=== PATIENT | female | born 1940 | race Caucasian/White ===

== ENCOUNTER → 2023-11-28 16:10 | Outpatient (REF) | payer OTHER, SELFPAY ==
[2023-11-28 12:14] LABS: % Basophils 0.7 % (0-2); % Eosinophils 0.4 % (0-6); % Immature Granulocytes 0.2 % (0-0.5); % Monocytes 7.2 % (1.7-9.3); % Neutrophils 62.5 % (42.2-75.2); Absolute Basophils 0.1 10^3/uL (0-0.2); Absolute Lymphocytes 2.6 10^3/uL (1.2-3.4); Absolute Monocytes 0.6 10^3/uL (0.1-0.6); Absolute Neutrophils 5.6 10^3/uL (1.4-6.5); Hematocrit 35.5 % (37.0-47.0); Hemoglobin 12.4 g/dL (12.0-16.0); Mean Corp Hgb Conc. 34.9 g/dL (33.0-37.0); Mean Corpuscular Hgb 33.4 pg (27.0-31.0); Mean Corpuscular Volume 95.7 fL (81.0-99.0); Mean Platelet Volume 11.2 fL (7.4-10.4); Nucleated Red Blood Cells % 0 %; Platelet Count 224 10^3/uL (130-400); Red Blood Cell Count 3.71 10^6/uL (4.20-5.40); Red Cell Dist. Width 12.5 % (11.5-14.5); White Blood Cell Count 8.9 10^3/uL (4.8-10.8)
== END ==
LOC: OIDL 16:10
PROVIDERS: ATTENDING PHYSICIAN Nurse Practitioner Acute Care
DX: E83.110 Hereditary hemochromatosis (principal)
CPT/HCPCS: 85025

== ENCOUNTER → 2023-12-02 07:27 | Outpatient (REF) | payer OTHER, SELFPAY ==
[2023-12-02 10:31] LABS: % Basophils 0.7 % (0-2); % Eosinophils 0.7 % (0-6); % Immature Granulocytes 0.2 % (0-0.5); % Lymphocytes 27.1 % (20.5-51.1); % Monocytes 6.8 % (1.7-9.3); % Neutrophils 64.5 % (42.2-75.2); Absolute Basophils 0.1 10^3/uL (0-0.2); Absolute Eosinophils 0.1 10^3/uL (0-0.7); Absolute Lymphocytes 2.5 10^3/uL (1.2-3.4); Absolute Monocytes 0.6 10^3/uL (0.1-0.6); Absolute Neutrophils 5.9 10^3/uL (1.4-6.5); Hematocrit 34.8 % (37.0-47.0); Mean Corp Hgb Conc. 34.5 g/dL (33.0-37.0); Mean Corpuscular Hgb 33.7 pg (27.0-31.0); Mean Corpuscular Volume 97.8 fL (81.0-99.0); Mean Platelet Volume 11.3 fL (7.4-10.4); Nucleated Red Blood Cells % 0 %; Platelet Count 243 10^3/uL (130-400); Red Blood Cell Count 3.56 10^6/uL (4.20-5.40); Red Cell Dist. Width 12.7 % (11.5-14.5); White Blood Cell Count 9.1 10^3/uL (4.8-10.8)
== END ==
LOC: REG 07:27
PROVIDERS: ATTENDING PHYSICIAN Internal Medicine Hematology & Oncology; FAMILY PHYSICIAN Nurse Practitioner Adult Health
DX: E83.110 Hereditary hemochromatosis (principal)
CPT/HCPCS: 36415; 85025

== ENCOUNTER → 2023-12-09 07:13 | Outpatient (REF) | payer OTHER, SELFPAY ==
[2023-12-09 08:48] LABS: % Basophils 0.6 % (0-2); % Eosinophils 0.7 % (0-6); % Immature Granulocytes 0.4 % (0-0.5); % Lymphocytes 29.6 % (20.5-51.1); % Monocytes 7.3 % (1.7-9.3); % Neutrophils 61.4 % (42.2-75.2); Absolute Basophils 0.1 10^3/uL (0-0.2); Absolute Eosinophils 0.1 10^3/uL (0-0.7); Absolute Lymphocytes 2.4 10^3/uL (1.2-3.4); Absolute Monocytes 0.6 10^3/uL (0.1-0.6); Hematocrit 32.7 % (37.0-47.0); Hemoglobin 11.5 g/dL (12.0-16.0); Mean Corp Hgb Conc. 35.2 g/dL (33.0-37.0); Mean Corpuscular Hgb 33.8 pg (27.0-31.0); Mean Corpuscular Volume 96.2 fL (81.0-99.0); Nucleated Red Blood Cells % 0 %; Platelet Count 258 10^3/uL (130-400); Red Cell Dist. Width 12.9 % (11.5-14.5); White Blood Cell Count 8.1 10^3/uL (4.8-10.8)
[2023-12-09 08:51] LABS: Iron 240 ug/dl (37-170)
[2023-12-09 09:00] LABS: Percent Saturation 105 % (20-50); Total Iron Binding Capacity 228 ug/dl (265-497)
== END ==
LOC: REG 07:13
PROVIDERS: ATTENDING PHYSICIAN Nurse Practitioner Acute Care; FAMILY PHYSICIAN Nurse Practitioner Adult Health
DX: E83.110 Hereditary hemochromatosis (principal)
CPT/HCPCS: 36415; 82728; 83540; 83550; 85025

== ENCOUNTER → 2023-12-22 16:10 | Outpatient (REF) | payer OTHER, SELFPAY ==
[2023-12-22 08:48] LABS: % Basophils 0.3 % (0-2); % Eosinophils 0.7 % (0-6); % Immature Granulocytes 0.1 % (0-0.5); % Lymphocytes 34.8 % (20.5-51.1); % Neutrophils 57.1 % (42.2-75.2); Absolute Eosinophils 0.1 10^3/uL (0-0.7); Absolute Lymphocytes 2.7 10^3/uL (1.2-3.4); Absolute Monocytes 0.5 10^3/uL (0.1-0.6); Absolute Neutrophils 4.4 10^3/uL (1.4-6.5); Hemoglobin 11.6 g/dL (12.0-16.0); Mean Corp Hgb Conc. 34.1 g/dL (33.0-37.0); Mean Corpuscular Hgb 33.7 pg (27.0-31.0); Mean Corpuscular Volume 98.8 fL (81.0-99.0); Mean Platelet Volume 9.7 fL (7.4-10.4); Platelet Count 230 10^3/uL (130-400); Red Blood Cell Count 3.44 10^6/uL (4.20-5.40); Red Cell Dist. Width 13.1 % (11.5-14.5); White Blood Cell Count 7.6 10^3/uL (4.8-10.8)
== END ==
LOC: OIDL 16:10
PROVIDERS: ATTENDING PHYSICIAN Nurse Practitioner Acute Care
DX: E83.110 Hereditary hemochromatosis (principal)
CPT/HCPCS: 85025

== ENCOUNTER → 2023-12-27 06:54 | Outpatient (REF) | payer OTHER, SELFPAY | LOC: RAD 06:54 | PROVIDERS: ATTENDING PHYSICIAN Nurse Practitioner Acute Care; FAMILY PHYSICIAN Nurse Practitioner Adult Health | DX: E83.110 Hereditary hemochromatosis (principal) | CPT/HCPCS: 76700 ==

== ENCOUNTER → 2023-12-28 06:52 | Outpatient (REF) | payer OTHER, SELFPAY ==
[2023-12-28 07:10] LABS: % Basophils 0.7 % (0-2); % Eosinophils 1.3 % (0-6); % Immature Granulocytes 0.3 % (0-0.5); % Lymphocytes 37.6 % (20.5-51.1); % Monocytes 9.5 % (1.7-9.3); % Neutrophils 50.6 % (42.2-75.2); Absolute Basophils 0.1 10^3/uL (0-0.2); Absolute Eosinophils 0.1 10^3/uL (0-0.7); Absolute Lymphocytes 2.6 10^3/uL (1.2-3.4); Absolute Monocytes 0.7 10^3/uL (0.1-0.6); Absolute Neutrophils 3.4 10^3/uL (1.4-6.5); Hematocrit 32.5 % (37.0-47.0); Hemoglobin 11.4 g/dL (12.0-16.0); Mean Corp Hgb Conc. 35.1 g/dL (33.0-37.0); Mean Corpuscular Hgb 34.1 pg (27.0-31.0); Mean Corpuscular Volume 97.3 fL (81.0-99.0); Nucleated Red Blood Cells % 0 %; Platelet Count 233 10^3/uL (130-400); Red Blood Cell Count 3.34 10^6/uL (4.20-5.40); Red Cell Dist. Width 13.2 % (11.5-14.5); White Blood Cell Count 6.8 10^3/uL (4.8-10.8)
== END ==
LOC: REG 06:52
PROVIDERS: ATTENDING PHYSICIAN Internal Medicine Hematology & Oncology; FAMILY PHYSICIAN Nurse Practitioner Adult Health
DX: E83.110 Hereditary hemochromatosis (principal)
CPT/HCPCS: 36415; 85025

== ENCOUNTER → 2023-12-29 11:19 | Outpatient (REF) | payer OTHER, SELFPAY ==
[2023-12-29 11:40] LABS: Iron 206 ug/dl (37-170)
[2023-12-29 11:49] LABS: Percent Saturation 85 % (20-50); Total Iron Binding Capacity 240 ug/dl (265-497)
== END ==
LOC: OIDL 11:19
PROVIDERS: ATTENDING PHYSICIAN Nurse Practitioner Acute Care
DX: E83.110 Hereditary hemochromatosis (principal)
CPT/HCPCS: 82728; 83540; 83550

== ENCOUNTER → 2024-01-04 06:45 | Outpatient (REF) | payer OTHER, SELFPAY ==
[2024-01-04 10:11] LABS: % Basophils 1.3 % (0-2); % Eosinophils 1.4 % (0-6); % Immature Granulocytes 0.5 % (0-0.5); % Monocytes 8.3 % (1.7-9.3); % Neutrophils 52.5 % (42.2-75.2); Absolute Basophils 0.1 10^3/uL (0-0.2); Absolute Eosinophils 0.1 10^3/uL (0-0.7); Absolute Lymphocytes 2.3 10^3/uL (1.2-3.4); Absolute Monocytes 0.5 10^3/uL (0.1-0.6); Absolute Neutrophils 3.3 10^3/uL (1.4-6.5); Hematocrit 33.5 % (37.0-47.0); Hemoglobin 11.3 g/dL (12.0-16.0); Mean Corp Hgb Conc. 33.7 g/dL (33.0-37.0); Mean Corpuscular Hgb 33.6 pg (27.0-31.0); Mean Corpuscular Volume 99.7 fL (81.0-99.0); Mean Platelet Volume 10.7 fL (7.4-10.4); Nucleated Red Blood Cells % 0 %; Platelet Count 239 10^3/uL (130-400); Red Blood Cell Count 3.36 10^6/uL (4.20-5.40); Red Cell Dist. Width 13.9 % (11.5-14.5); White Blood Cell Count 6.4 10^3/uL (4.8-10.8)
== END ==
LOC: REG 06:45
PROVIDERS: ATTENDING PHYSICIAN Internal Medicine Hematology & Oncology; FAMILY PHYSICIAN Nurse Practitioner Adult Health
DX: E83.110 Hereditary hemochromatosis (principal)
CPT/HCPCS: 36415; 85025

== ENCOUNTER → 2024-01-11 06:48 | Outpatient (REF) | payer OTHER, SELFPAY ==
[2024-01-11 08:39] LABS: % Basophils 0.7 % (0-2); % Eosinophils 1.2 % (0-6); % Immature Granulocytes 0.4 % (0-0.5); % Lymphocytes 35.4 % (20.5-51.1); % Monocytes 8.1 % (1.7-9.3); % Neutrophils 54.2 % (42.2-75.2); Absolute Basophils 0.1 10^3/uL (0-0.2); Absolute Eosinophils 0.1 10^3/uL (0-0.7); Absolute Lymphocytes 2.5 10^3/uL (1.2-3.4); Absolute Monocytes 0.6 10^3/uL (0.1-0.6); Absolute Neutrophils 3.8 10^3/uL (1.4-6.5); Hematocrit 33.5 % (37.0-47.0); Hemoglobin 11.1 g/dL (12.0-16.0); Mean Corp Hgb Conc. 33.1 g/dL (33.0-37.0); Mean Corpuscular Hgb 33.3 pg (27.0-31.0); Mean Corpuscular Volume 100.6 fL (81.0-99.0); Mean Platelet Volume 10.4 fL (7.4-10.4); Nucleated Red Blood Cells % 0 %; Platelet Count 253 10^3/uL (130-400); Red Blood Cell Count 3.33 10^6/uL (4.20-5.40); Red Cell Dist. Width 13.4 % (11.5-14.5); White Blood Cell Count 6.9 10^3/uL (4.8-10.8)
[2024-01-11 09:44] LABS: Iron 289 ug/dl (37-170)
[2024-01-11 09:54] LABS: Percent Saturation 108 % (20-50); Total Iron Binding Capacity 267 ug/dl (265-497)
== END ==
LOC: REG 06:48
PROVIDERS: ATTENDING PHYSICIAN Internal Medicine Hematology & Oncology; FAMILY PHYSICIAN Nurse Practitioner Adult Health
DX: E83.110 Hereditary hemochromatosis (principal)
CPT/HCPCS: 36415; 82728; 83540; 83550; 85025

== ENCOUNTER → 2024-01-20 11:03 | Outpatient (REF) | payer OTHER, SELFPAY | LOC: HWRCS 11:03 | PROVIDERS: ATTENDING PHYSICIAN Internal Medicine; FAMILY PHYSICIAN Nurse Practitioner Adult Health | DX: R10.13 Epigastric pain (principal) | CPT/HCPCS: 93306 ==

== ENCOUNTER → 2024-01-25 07:17 | Outpatient (REF) | payer OTHER, SELFPAY ==
[2024-01-25 09:14] LABS: Iron 243 ug/dl (37-170)
[2024-01-25 09:15] LABS: % Basophils 0.6 % (0-2); % Eosinophils 1.3 % (0-6); % Immature Granulocytes 0.4 % (0-0.5); % Lymphocytes 26.5 % (20.5-51.1); % Monocytes 7.1 % (1.7-9.3); % Neutrophils 64.1 % (42.2-75.2); Absolute Basophils 0.1 10^3/uL (0-0.2); Absolute Eosinophils 0.1 10^3/uL (0-0.7); Absolute Lymphocytes 2.1 10^3/uL (1.2-3.4); Absolute Monocytes 0.6 10^3/uL (0.1-0.6); Absolute Neutrophils 5.1 10^3/uL (1.4-6.5); Hematocrit 30.7 % (37.0-47.0); Hemoglobin 10.3 g/dL (12.0-16.0); Mean Corp Hgb Conc. 33.6 g/dL (33.0-37.0); Mean Corpuscular Hgb 33.9 pg (27.0-31.0); Mean Platelet Volume 10.5 fL (7.4-10.4); Nucleated Red Blood Cells % 0 %; Platelet Count 264 10^3/uL (130-400); Red Blood Cell Count 3.04 10^6/uL (4.20-5.40); Red Cell Dist. Width 13.6 % (11.5-14.5); White Blood Cell Count 7.9 10^3/uL (4.8-10.8)
[2024-01-25 09:24] LABS: Percent Saturation 92 % (20-50); Total Iron Binding Capacity 264 ug/dl (265-497)
== END ==
LOC: REG 07:17
PROVIDERS: ATTENDING PHYSICIAN Internal Medicine Hematology & Oncology; FAMILY PHYSICIAN Nurse Practitioner Adult Health
DX: E83.110 Hereditary hemochromatosis (principal)
CPT/HCPCS: 36415; 82728; 83540; 83550; 85025

== ENCOUNTER → 2024-01-27 07:22 | Outpatient (REF) | payer OTHER, SELFPAY | LOC: DHCBC/DCA 07:22 | PROVIDERS: ATTENDING PHYSICIAN Internal Medicine; FAMILY PHYSICIAN Nurse Practitioner Adult Health | DX: R10.13 Epigastric pain (principal) | CPT/HCPCS: 78452; 93017; A9500; J2785 ==

== ENCOUNTER → 2024-02-01 07:38 | Outpatient (REF) | payer OTHER, SELFPAY ==
[2024-02-01 08:06] LABS: % Basophils 0.8 % (0-2); % Eosinophils 1.1 % (0-6); % Immature Granulocytes 0.6 % (0-0.5); % Lymphocytes 27.1 % (20.5-51.1); % Monocytes 6.7 % (1.7-9.3); % Neutrophils 63.7 % (42.2-75.2); Absolute Basophils 0.1 10^3/uL (0-0.2); Absolute Eosinophils 0.1 10^3/uL (0-0.7); Absolute Lymphocytes 1.8 10^3/uL (1.2-3.4); Absolute Monocytes 0.4 10^3/uL (0.1-0.6); Absolute Neutrophils 4.2 10^3/uL (1.4-6.5); Hematocrit 29.5 % (37.0-47.0); Hemoglobin 10.6 g/dL (12.0-16.0); Mean Corp Hgb Conc. 35.9 g/dL (33.0-37.0); Mean Corpuscular Hgb 36.2 pg (27.0-31.0); Mean Corpuscular Volume 100.7 fL (81.0-99.0); Mean Platelet Volume 9.8 fL (7.4-10.4); Nucleated Red Blood Cells % 0 %; Platelet Count 253 10^3/uL (130-400); Red Blood Cell Count 2.93 10^6/uL (4.20-5.40); Red Cell Dist. Width 13.3 % (11.5-14.5); White Blood Cell Count 6.6 10^3/uL (4.8-10.8)
[2024-02-01 08:40] LABS: Iron 214 ug/dl (37-170)
[2024-02-01 08:49] LABS: Percent Saturation 80 % (20-50); Total Iron Binding Capacity 266 ug/dl (265-497)
== END ==
LOC: REG 07:38
PROVIDERS: ATTENDING PHYSICIAN Internal Medicine Hematology & Oncology; FAMILY PHYSICIAN Nurse Practitioner Adult Health
DX: E83.110 Hereditary hemochromatosis (principal)
CPT/HCPCS: 36415; 82728; 83540; 83550; 85025

== ENCOUNTER → 2024-02-08 07:09 | Outpatient (REF) | payer OTHER, SELFPAY ==
[2024-02-08 08:53] LABS: % Basophils 1.1 % (0-2); % Eosinophils 1.2 % (0-6); % Immature Granulocytes 0.4 % (0-0.5); % Lymphocytes 33.7 % (20.5-51.1); % Monocytes 6.6 % (1.7-9.3); Absolute Basophils 0.1 10^3/uL (0-0.2); Absolute Eosinophils 0.1 10^3/uL (0-0.7); Absolute Lymphocytes 2.5 10^3/uL (1.2-3.4); Absolute Monocytes 0.5 10^3/uL (0.1-0.6); Absolute Neutrophils 4.1 10^3/uL (1.4-6.5); Hemoglobin 11.3 g/dL (12.0-16.0); Iron 272 ug/dl (37-170); Mean Corp Hgb Conc. 34.2 g/dL (33.0-37.0); Mean Corpuscular Hgb 33.7 pg (27.0-31.0); Mean Corpuscular Volume 98.5 fL (81.0-99.0); Mean Platelet Volume 10.5 fL (7.4-10.4); Nucleated Red Blood Cells % 0 %; Platelet Count 263 10^3/uL (130-400); Red Blood Cell Count 3.35 10^6/uL (4.20-5.40); Red Cell Dist. Width 13.4 % (11.5-14.5); White Blood Cell Count 7.3 10^3/uL (4.8-10.8)
[2024-02-08 09:04] LABS: Percent Saturation 105 % (20-50); Total Iron Binding Capacity 258 ug/dl (265-497)
== END ==
LOC: REG 07:09
PROVIDERS: ATTENDING PHYSICIAN Internal Medicine Hematology & Oncology; FAMILY PHYSICIAN Nurse Practitioner Adult Health
DX: E83.110 Hereditary hemochromatosis (principal)
CPT/HCPCS: 36415; 82728; 83540; 83550; 85025

== ENCOUNTER → 2024-02-23 07:37 | Outpatient (REF) | payer OTHER, SELFPAY ==
[2024-02-23 09:04] LABS: Iron 194 ug/dl (37-170)
[2024-02-23 09:13] LABS: Percent Saturation 74 % (20-50); Total Iron Binding Capacity 261 ug/dl (265-497)
[2024-02-23 09:56] LABS: % Basophils 0.6 % (0-2); % Eosinophils 0.9 % (0-6); % Immature Granulocytes 0.4 % (0-0.5); % Lymphocytes 22.8 % (20.5-51.1); % Monocytes 7.5 % (1.7-9.3); % Neutrophils 67.8 % (42.2-75.2); Absolute Basophils 0.1 10^3/uL (0-0.2); Absolute Eosinophils 0.1 10^3/uL (0-0.7); Absolute Lymphocytes 2.2 10^3/uL (1.2-3.4); Absolute Monocytes 0.7 10^3/uL (0.1-0.6); Absolute Neutrophils 6.6 10^3/uL (1.4-6.5); Hematocrit 31.9 % (37.0-47.0); Mean Corp Hgb Conc. 34.5 g/dL (33.0-37.0); Mean Corpuscular Hgb 33.7 pg (27.0-31.0); Mean Corpuscular Volume 97.9 fL (81.0-99.0); Mean Platelet Volume 10.6 fL (7.4-10.4); Nucleated Red Blood Cells % 0 %; Platelet Count 239 10^3/uL (130-400); Red Blood Cell Count 3.26 10^6/uL (4.20-5.40); Red Cell Dist. Width 13.2 % (11.5-14.5); White Blood Cell Count 9.7 10^3/uL (4.8-10.8)
== END ==
LOC: REG 07:37
PROVIDERS: ATTENDING PHYSICIAN Internal Medicine Hematology & Oncology; FAMILY PHYSICIAN Nurse Practitioner Adult Health
DX: E83.110 Hereditary hemochromatosis (principal)
CPT/HCPCS: 36415; 82728; 83540; 83550; 85025

== ENCOUNTER → 2024-03-07 10:00 | Outpatient (REF) | payer OTHER, SELFPAY ==
[2024-03-07 11:35] LABS: Iron 232 ug/dl (37-170)
[2024-03-07 11:46] LABS: Percent Saturation 91 % (20-50); Total Iron Binding Capacity 254 ug/dl (265-497)
[2024-03-07 11:55] LABS: % Eosinophils 0.5 % (0-6); % Immature Granulocytes 0.4 % (0-0.5); % Lymphocytes 29.4 % (20.5-51.1); % Monocytes 6.3 % (1.7-9.3); % Neutrophils 62.4 % (42.2-75.2); Absolute Basophils 0.1 10^3/uL (0-0.2); Absolute Lymphocytes 2.5 10^3/uL (1.2-3.4); Absolute Monocytes 0.5 10^3/uL (0.1-0.6); Absolute Neutrophils 5.2 10^3/uL (1.4-6.5); Hematocrit 31.7 % (37.0-47.0); Hemoglobin 10.9 g/dL (12.0-16.0); Mean Corp Hgb Conc. 34.4 g/dL (33.0-37.0); Mean Corpuscular Hgb 33.2 pg (27.0-31.0); Mean Corpuscular Volume 96.6 fL (81.0-99.0); Mean Platelet Volume 10.8 fL (7.4-10.4); Nucleated Red Blood Cells % 0 %; Platelet Count 274 10^3/uL (130-400); Red Blood Cell Count 3.28 10^6/uL (4.20-5.40); Red Cell Dist. Width 13.1 % (11.5-14.5); White Blood Cell Count 8.4 10^3/uL (4.8-10.8)
== END ==
LOC: REG 10:00
PROVIDERS: ATTENDING PHYSICIAN Internal Medicine Hematology & Oncology
DX: E83.110 Hereditary hemochromatosis (principal)
CPT/HCPCS: 36415; 82728; 83540; 83550; 85025

== ENCOUNTER → 2024-03-21 07:11 | Outpatient (REF) | payer OTHER, SELFPAY ==
[2024-03-21 09:03] LABS: Iron 202 ug/dl (37-170)
[2024-03-21 09:11] LABS: % Basophils 0.9 % (0-2); % Immature Granulocytes 0.6 % (0-0.5); % Lymphocytes 27.5 % (20.5-51.1); % Monocytes 6.7 % (1.7-9.3); % Neutrophils 63.3 % (42.2-75.2); Absolute Basophils 0.1 10^3/uL (0-0.2); Absolute Eosinophils 0.1 10^3/uL (0-0.7); Absolute Immature Granulocytes 0.1 10^3/uL (0-0.05); Absolute Lymphocytes 2.5 10^3/uL (1.2-3.4); Absolute Monocytes 0.6 10^3/uL (0.1-0.6); Absolute Neutrophils 5.7 10^3/uL (1.4-6.5); Hematocrit 34.2 % (37.0-47.0); Hemoglobin 11.7 g/dL (12.0-16.0); Mean Corp Hgb Conc. 34.2 g/dL (33.0-37.0); Mean Corpuscular Hgb 33.3 pg (27.0-31.0); Mean Corpuscular Volume 97.4 fL (81.0-99.0); Mean Platelet Volume 10.6 fL (7.4-10.4); Nucleated Red Blood Cells % 0 %; Platelet Count 258 10^3/uL (130-400); Red Blood Cell Count 3.51 10^6/uL (4.20-5.40); Red Cell Dist. Width 13.2 % (11.5-14.5)
[2024-03-21 09:13] LABS: Percent Saturation 74 % (20-50); Total Iron Binding Capacity 272 ug/dl (265-497)
== END ==
LOC: REG 07:11
PROVIDERS: ATTENDING PHYSICIAN Internal Medicine Hematology & Oncology; FAMILY PHYSICIAN Nurse Practitioner Adult Health
DX: E83.110 Hereditary hemochromatosis (principal)
CPT/HCPCS: 36415; 82728; 83540; 83550; 85025

== ENCOUNTER → 2024-04-16 07:01 | Outpatient (REF) | payer OTHER, SELFPAY ==
[2024-04-16 09:06] LABS: ALT (SGPT) 24 U/L (0-35); AST (SGOT) 34 U/L (14-36); Albumin 4.1 g/dl (3.5-5.0); Alkaline Phosphatase 90 U/L (38-126); Direct Bilirubin 0.2 mg/dl (0.0-0.4); Iron 231 ug/dl (37-170); Total Bilirubin 0.7 mg/dl (0.2-1.3); Total Protein 6.6 g/dl (6.3-8.2)
[2024-04-16 09:15] LABS: Percent Saturation 91 % (20-50); Total Iron Binding Capacity 253 ug/dl (265-497)
[2024-04-16 09:23] LABS: % Basophils 0.9 % (0-2); % Eosinophils 1.3 % (0-6); % Immature Granulocytes 0.9 % (0-0.5); % Lymphocytes 35.8 % (20.5-51.1); % Monocytes 8.6 % (1.7-9.3); % Neutrophils 52.5 % (42.2-75.2); Absolute Basophils 0.1 10^3/uL (0-0.2); Absolute Eosinophils 0.1 10^3/uL (0-0.7); Absolute Immature Granulocytes 0.1 10^3/uL (0-0.05); Absolute Lymphocytes 2.4 10^3/uL (1.2-3.4); Absolute Monocytes 0.6 10^3/uL (0.1-0.6); Absolute Neutrophils 3.6 10^3/uL (1.4-6.5); Hematocrit 34.3 % (37.0-47.0); Hemoglobin 12.1 g/dL (12.0-16.0); Mean Corp Hgb Conc. 35.3 g/dL (33.0-37.0); Mean Corpuscular Hgb 33.8 pg (27.0-31.0); Mean Corpuscular Volume 95.8 fL (81.0-99.0); Mean Platelet Volume 11.1 fL (7.4-10.4); Nucleated Red Blood Cells % 0 %; Platelet Count 230 10^3/uL (130-400); Red Blood Cell Count 3.58 10^6/uL (4.20-5.40); White Blood Cell Count 6.8 10^3/uL (4.8-10.8)
== END ==
LOC: REG 07:01
PROVIDERS: ATTENDING PHYSICIAN Internal Medicine Hematology & Oncology; FAMILY PHYSICIAN Physician Assistant Medical
DX: E83.110 Hereditary hemochromatosis (principal); R71.8 Other abnormality of red blood cells; D53.9 Nutritional anemia, unspecified; D51.8 Other vitamin B12 deficiency anemias
CPT/HCPCS: 36415; 80076; 82728; 83540; 83550; 85025

== ENCOUNTER → 2024-04-27 10:03 | Outpatient (REF) | payer OTHER, SELFPAY ==
[2024-04-27 12:07] LABS: Blood Urea Nitrogen 36 mg/dl (7-17)
== END ==
LOC: REG 10:03
PROVIDERS: ATTENDING PHYSICIAN Internal Medicine Hematology & Oncology
DX: E83.110 Hereditary hemochromatosis (principal); R71.8 Other abnormality of red blood cells; D53.9 Nutritional anemia, unspecified; D51.8 Other vitamin B12 deficiency anemias
CPT/HCPCS: 36415; 82105; 82565; 84520

== ENCOUNTER → 2024-04-30 07:52 | Outpatient (REF) | payer OTHER, SELFPAY | LOC: RAD 07:52 | PROVIDERS: ATTENDING PHYSICIAN Internal Medicine Hematology & Oncology; FAMILY PHYSICIAN Nurse Practitioner Adult Health | DX: E83.110 Hereditary hemochromatosis (principal) | CPT/HCPCS: 74170; Q9967 ==

== ENCOUNTER 2024-05-07 11:01 | Emergency (ER) | payer OTHER, SELFPAY ==
[2024-05-07] VITALS (9 sets, daily range): BP systolic 92–136; BP diastolic 66–111; PULSE 85–96
--- NOTE | 2024-05-07 12:51 | ED.GENMED ---
History of Present Illness
General
Chief Complaint: Breathing Problem
Source: patient
Exam Limitations: none
Time Seen by Provider: 05/07/24 12:43
Nursing documentation reviewed up to this point in time: agreed with
History of Present Illness
History of Present Illness:
Patient presents to ED secondary to intermittent dizziness, along with whole body racing feeling', over the past 3 days, which started 2 days after starting a new medication called Deferasirox for elevated iron level. In addition, patient reports
nasal congestion with cough, 2 days prior to starting her new medication, symptoms currently ongoing. Denies chest pain. Denies shortness of breath. Denies nausea, vomiting, or diarrhea. Denies loss of appetite. Patient spoke with her
digital composer who advised patient to stop taking the new medication yesterday. Today, patient states her symptoms are not as severe. Denies headache. Denies blurred vision. Denies loss of sensation or weakness. Denies difficulty with ambulation.
Past History
Past History
ED Past Medical History: HTN (Takes a 'water pill')
Social History
Tobacco: Non-smoker
Personal:
Living: with family
Review of Systems
Review of Systems
Allergies reviewed?: Yes
All Other Systems: ROS reviewed and negative except as documented in HPI and ROS
Constitutional: Reports no symptoms
EENT: Reports no symptoms
Respiratory: Reports cough; Denies trouble breathing
Cardiac: Reports no symptoms; Denies chest pain or palpitations
ABD/GI: Reports no symptoms
Musculoskeletal: Reports no symptoms
Skin: Reports no symptoms
Neurological: Reports dizzy
Phy Exam
Physical Exam
Physical Exam:
Physical Exam
General: no apparent distress, not acutely ill. afebrile
Head: nc/at. eomi
Neck: supple. normal range of motion. normal posterior pharynx
Heart: s1/s2 regular rate and rhythm, no murmur. equal radial pulses.
Lungs: no acute respiratory distress. clear bilaterally
Abdomen: normal bowel sounds. not tender.
Neuro: alert and oriented x 3. no focal neurological deficits
Skin: no rash
Psychiatric: well kept. interactive and cooperative
Extremities: no edema. no calf tenderness.
Scores
Heart Failure Risk
Heart Failure Risk Score: Not Applicable
Course
Orders/Labs/Results
Orders:
Orders
05/07/24 11:11
Electrocardiogram (*1) Urgent
Reason for Study: Shortness of Breath
EKG- Treatment ONCE
05/07/24 12:56
COVID-19 Antigen Urgent
Source: Nasal Swab
Complete Blood Count/With Diff Urgent
Influenza A+B Rapid Molecular Urgent
ALAYNA Source: Nasal Swab
Specimen Description:
05/07/24 12:57
CMP [Comprehensive Metabolic Panel] Urgent
TSH Reflex To Free T4 Urgent
Comment: ADD ON
05/07/24 13:07
Add On- LAB Urgent
Tests Added?: Pro-BNP, TSH to reflex free T4, magnesium
CR Chest - 2 Views Urgent
Comment:
Reason For Exam: congestion/cough/sob
05/07/24 13:18
Orthostatic VS- Treatment ONCE
05/07/24 13:41
0.9% Sodium Chloride 250 ml [Nss] 250 ml IV BOLUS
05/07/24 13:55
Pro-BNP [NT-proBNP] Urgent
05/07/24 14:55
CT Head W/o Iv Contrast Urgent
Comment:
Reason For Exam: dizziness
05/07/24 16:39
Azithromycin [Zithromax] 500 mg PO NOW STA
Abnormal Lab Results
05/07/24 05/07/24
12:56 12:57
RBC 3.85 L 10^6/uL
(4.20-5.40)
Hct 36.2 L %
(37.0-47.0)
MCH 34.0 H pg
(27.0-31.0)
MPV 10.6 H fL
(7.4-10.4)
Abs Immat Gran (auto) 0.1 H 10^3/uL
(0-0.05)
Absolute Neuts (auto) 7.4 H 10^3/uL
(1.4-6.5)
Absolute Monos (auto) 1.2 H 10^3/uL
(0.1-0.6)
Immature Gran % 0.6 H %
(0-0.5)
Lymphocytes % 18.8 L %
(20.5-51.1)
Monocytes % 10.9 H %
(1.7-9.3)
Sodium 134 L mmol/L
(135-145)
Chloride 97 L mmol/L
(98-107)
BUN 35 H mg/dl
(7-17)
Creatinine 1.1 H mg/dL
(0.6-1.0)
Glucose 112 H mg/dl
(70-99)
Total Bilirubin 1.4 H mg/dl
(0.2-1.3)
05/07/24 12:56
05/07/24 12:57
Vital Signs
Initial and Last Documented VS:
Initial Vital Signs
Temp Pulse Resp BP Pulse Ox
98.6 F 92 16 130/81 95
05/07/24 11:09 05/07/24 11:09 05/07/24 11:09 05/07/24 11:09 05/07/24 11:09
Last Documented Vital Signs
Temp Pulse Resp BP Pulse Ox
98.6 F 88 27 114/69 95
05/07/24 11:09 05/07/24 15:30 05/07/24 15:30 05/07/24 15:00 05/07/24 15:30
MDM/Problems Addressed
MDM/Problems Addressed:
Chest x-ray finding discussed with patient. Will start patient on Z-Fredo.
Discussed with on-call hematology, Dr. Harden, who agrees with plan to withhold for new medication for the time being, until reevaluation with her primary digital composer, Dr. Ho.
CT head report reviewed and discussed with patient as well as on-call neurology, Dr. Cao. Recommends that patient follow-up with PCP for outpatient workup, including MRI brain/carotid Doppler, along with starting patient on 81 mg aspirin daily.
Discussed with primary care physician's office via [facility] text and relayed need for an outpatient follow-up.
Patient otherwise is afebrile, hemodynamically stable, and neurologically intact, without any distress at time of discharge. Patient will follow-up with her PCP and digital composer, for further evaluation and treatment.
*EKG
Interpreted by ED Provider?: Yes
EKG Intrepretation Date: 05/07/24
Heart Rate: 87
Rate: normal
Rhythm: sinus
[place]: normal axis
Interval: normal interval
*Critical Care Note
Total Time (30-74mins, 75-104mins- exclusive of procedures): Not Applicable
ED Attending Note
-
Portions of this chart may have been created with voice recognition software.� Occasional wrong word or��sound alike� substitutions may have occurred due to the inherent limitations of voice recognition software.
Discharge Plan
Departure
Patient Disposition: Home (Routine Discharge)
Date of Disposition: 05/07/24
Time of Disposition: 16:43
Patient with high blood pressure during this ER visit?: Yes
Condition: Good
Discharge Problem:
Pneumonia, Dizziness
Instructions: Pneumonia in adults, Dizziness in adults - ED discharge instructions
Prescriptions:
New
azithromycin [Zithromax] 250 mg tablet
250 mg PO DAILY 4 Days Qty: 4 0RF
No Action
Bp Medication
1 tab PO .MIDDAY
Water Pill
1 tab PO .MIDDAY
azithromycin 250 MG tablet
250 mg PO DAILY Qty: 6 0RF
albuterol sulfate [Proventil HFA] 90 MCG/PUFF HFA aerosol inhaler
2 puff inhalation Q4HPRN PRN (Reason: shortness of breath) Qty: 1 0RF
guaifenesin [Mucus Relief ER] 600 MG tablet extended release 12hr
600 mg PO Q12H Qty: 20 0RF
Referrals:
Kiersten Peterson CRNP [Family Provider] -
Helio Ho MD [Active] -
Activity Restrictions/Additional Instructions:
As discussed, please follow-up with your primary care physician and digital composer for further evaluation and treatment. Your prescription has been sent electronically to [facility] pharmacy in [place].
Interventions
Interventions:
*Risk Screen - Suicide Last Done: 05/07/24 11:11
*Neglect/Abuse Screening Last Done: 05/07/24 11:11
*Nursing Disposition Last Done: 05/07/24 17:00
ED- Cardiac Assessment Last Done: 05/07/24 12:59
ED- Pulmonary Assessment Last Done: 05/07/24 12:59
Discharge Date and Time
Discharge Date/Time: 05/07/24 17:00
Print Language: [place]
[2024-05-07 13:15] LABS: % Basophils 0.7 % (0-2); % Eosinophils 0.2 % (0-6); % Immature Granulocytes 0.6 % (0-0.5); % Lymphocytes 18.8 % (20.5-51.1); % Monocytes 10.9 % (1.7-9.3); % Neutrophils 68.8 % (42.2-75.2); Absolute Basophils 0.1 10^3/uL (0-0.2); Absolute Immature Granulocytes 0.1 10^3/uL (0-0.05); Absolute Monocytes 1.2 10^3/uL (0.1-0.6); Absolute Neutrophils 7.4 10^3/uL (1.4-6.5); Hematocrit 36.2 % (37.0-47.0); Hemoglobin 13.1 g/dL (12.0-16.0); Mean Corp Hgb Conc. 36.2 g/dL (33.0-37.0); Mean Platelet Volume 10.6 fL (7.4-10.4); Nucleated Red Blood Cells % 0 %; Platelet Count 215 10^3/uL (130-400); Red Blood Cell Count 3.85 10^6/uL (4.20-5.40); Red Cell Dist. Width 12.8 % (11.5-14.5); White Blood Cell Count 10.7 10^3/uL (4.8-10.8)
[2024-05-07 13:30] LABS: ALT (SGPT) 18 U/L (0-35); AST (SGOT) 27 U/L (14-36); Albumin 4.2 g/dl (3.5-5.0); Alkaline Phosphatase 87 U/L (38-126); Blood Urea Nitrogen 35 mg/dl (7-17); Calcium 10.2 mg/dl (8.4-10.2); Carbon Dioxide 27 mmol/L (22-30); Chloride 97 mmol/L (98-107); Glucose 112 mg/dl (70-99); Potassium 3.7 mmol/L (3.5-5.1); Sodium 134 mmol/L (135-145); Total Bilirubin 1.4 mg/dl (0.2-1.3); Total Protein 7.1 g/dl (6.3-8.2); eGFR 50.17
[2024-05-07 13:53] LABS: COVID-19 Antigen Negative (Negative)
[2024-05-07] MEDS: NSS 250 IV (13:53)
[2024-05-07 15:14] LABS: TSH Reflex To Free T4 2.55 uIU/ml (0.47-4.68)
[2024-05-07 15:42] LABS: NT-proBNP 549 pg/ml
[2024-05-07] MEDS: ZITHROMAX 500 MG PO (16:52)
== END 2024-05-07 17:00 | disposition home or self-care (01) ==
LOC: EMR 11:01
PROVIDERS: Emergency Medicine; EMERGENCY PHYSICIAN Emergency Medicine; FAMILY PHYSICIAN Nurse Practitioner Adult Health
DX: J18.9 Pneumonia, unspecified organism (principal); R42 Dizziness and giddiness; I10 Essential (primary) hypertension
CPT/HCPCS: 99285; 96360; 70450; 71046; 80053; 83880; 84443; 85025; 87502; 87811; 93005

== ENCOUNTER 2024-05-12 19:09 | Inpatient (IN) | payer OTHER, SELFPAY ==
[2024-05-12] VITALS (7 sets, daily range): BP systolic 102–148; BP diastolic 58–74; BMI 20.3; BMI 19.8
--- NOTE | 2024-05-12 15:10 | ED.GENMED ---
History of Present Illness
<Mony Oshea PA-C - Last Filed: 05/12/24 19:17>
General
Chief Complaint: Pneumonia Symptoms
Source: patient
Exam Limitations: none
Time Seen by Provider: 05/12/24 15:03
Nursing documentation reviewed up to this point in time: agreed with
History of Present Illness
History of Present Illness:
83-year-old female with past medical history of hypertension presents emergency department today with concerns of decreased appetite, increasing shortness of breath, generalized weakness. Of note, patient was recently diagnosed with pneumonia on
05/07 and completed a course of azithromycin. Patient feels like she has been getting worse. Patient states that because of her shortness of breath, she has been having trouble getting off of the couch and states that she feels like she has been
drinking less water. Patient denies any nausea or vomiting, any abdominal pain. Patient denies any diarrhea or constipation. Patient denies any recent hospitalizations. She denies any sick contacts. She denies any hemoptysis.
Past History
<Mony Oshea PA-C - Last Filed: 05/12/24 19:17>
Past History
ED Past Medical History: HTN (Takes a 'water pill')
Social History
Tobacco: Non-smoker
Personal:
Living: with family
Review of Systems
<Mony Oshea PA-C - Last Filed: 05/12/24 19:17>
Review of Systems
All Other Systems: ROS reviewed and negative except as documented in HPI and ROS
Phy Exam
<Mony Oshea PA-C - Last Filed: 05/12/24 19:17>
Physical Exam
Physical Exam:
General: Patient is well appearing and in no acute distress; non-toxic
Skin: Warm and dry, no rashes or lesions
Head: Normocephalic, atraumatic
Eyes: Sclera non-icteric. EOMs intact.
Cardiac: Regular rate and rhythm, no murmurs
Pulm: Tachypnea noted, pursed lip breathing, no wheezes, rales, rhonchi
Abdomen: No abdominal tenderness to palpation
Neuro: CN II-XII intact, no focal neurologic deficits.
Psychiatric: Appropriate mood and affect.
Sepsis
<Mony Oshea PA-C - Last Filed: 05/12/24 19:17>
Sepsis Screening
Sepsis Assessment: Sepsis
Sepsis Screen
Sepsis Screen: Sepsis
Date: 05/12/24
Time: 19:17
Course
<Mony Oshea PA-C - Last Filed: 05/12/24 19:17>
Orders/Labs/Results
Orders:
Orders
05/12/24 15:21
Cardiac Monitoring- Treatment ONCE
Urinalysis Reflex To Culture Urgent
Acetaminophen [Tylenol] 1,000 mg PO NOW STA
05/12/24 15:40
Complete Blood Count/With Diff Urgent
Comprehensive Metabolic Panel Urgent
05/12/24 16:07
Lactic Acid Urgent
Blood Culture Q30M
ALAYNA Source: Blood/Venous
Specimen Description:
Blood Culture Q30M
ALAYNA Source: Blood/Venous
Specimen Description:
05/12/24 16:47
0.9% Sodium Chloride 500 ml [Nss] 500 ml IV BOLUS
CR Chest - 2 Views Urgent
Comment:
Reason For Exam: cough, suspect PNA
05/12/24 16:53
0.9% Sodium Chloride 1000 ml [Nss] 1,000 ml IV BOLUS
05/12/24 17:31
Cefepime HCl [Maxipime] 2,000 mg IV NOW STA
05/12/24 18:11
Vancomycin [Vancocin] 1,500 mg 0.9% Sodium Chloride 500 ml [Nss] 500 ml IV NOW
05/12/24 18:22
Admit/Transfer Patient As Directed
Co-Sign Provider:
Level of Care: Inpatient admission
Assign to:: Telemetry
Physician / Group: sylviaist-Selin
Diagnosis: sepsis due to pna
Reason for Telemetry: Arrhythmia
Date to Stop Telemetry: 05/15/24
Time to Stop Telemetry: 11:00
Reason for Hospitalization: IV ABX, possible need for O2--failed outpt abx
Expected length of stay greater than two midnights?: Yes
ELOS- Estimated Length of Stay in days: 4
I certify the patient meets the requirements for IP care: Yes
PRN Pain Medication Management As Directed
May give lesser potent ordered pain med per pt: Yes
preference::
Protocol:: Medication orders for pain may be administered in a
manner that supports deferring to patient preference
when the pt is:
- Requesting an ordered lesser potent pain medication.
Least to most potent pain medications are defined
as: acetaminophen < NSAID < tramadol < opioids
(morphine, oxycodone, hydromorphone).
- Requesting a lesser dose of the same medication IF
ORDERED.
- Requesting a less intrusive route of administration
if both routes are prescribed by the provider (PO <
IV).
05/12/24 18:23
Code Status As Directed
Resuscitation Status: Full Code
05/12/24 18:28
COVID-19 Antigen Stat
Source: Nasal Swab
Influenza A+B Rapid Molecular Stat
ALAYNA Source: Nasal Swab
Specimen Description:
05/15/24 11:00
DC Protocol for Telemetry ONCE
Abnormal Lab Results
05/12/24
15:40
WBC 18.5 H 10^3/uL
(4.8-10.8)
RBC 3.80 L 10^6/uL
(4.20-5.40)
Hct 34.5 L %
(37.0-47.0)
MCH 32.1 H pg
(27.0-31.0)
Abs Immat Gran (auto) 0.2 H 10^3/uL
(0-0.05)
Absolute Neuts (auto) 15.1 H 10^3/uL
(1.4-6.5)
Absolute Monos (auto) 1.6 H 10^3/uL
(0.1-0.6)
Immature Gran % 1.1 H %
(0-0.5)
Neutrophils % 81.9 H %
(42.2-75.2)
Lymphocytes % 7.8 L %
(20.5-51.1)
Sodium 133 L mmol/L
(135-145)
Chloride 95 L mmol/L
(98-107)
BUN 28 H mg/dl
(7-17)
Glucose 115 H mg/dl
(70-99)
05/12/24 15:40
05/12/24 15:40
Vital Signs
Temp: 100.4 F
Initial and Last Documented VS:
Initial Vital Signs
Temp Pulse Resp Pulse Ox
98.4 F 110 30 92
05/12/24 14:43 05/12/24 14:43 05/12/24 14:43 05/12/24 14:43
Last Documented Vital Signs
Temp Pulse Resp BP Pulse Ox
101.7 F H 85 22 102/60 94
05/12/24 15:32 05/12/24 18:45 05/12/24 18:45 05/12/24 18:01 05/12/24 18:45
<Sammie Vasquez DO - Last Filed: 05/12/24 17:31>
Orders/Labs/Results
Orders:
Orders
05/12/24 15:21
Cardiac Monitoring- Treatment ONCE
Urinalysis Reflex To Culture Urgent
Acetaminophen [Tylenol] 1,000 mg PO NOW STA
05/12/24 15:40
Complete Blood Count/With Diff Urgent
Comprehensive Metabolic Panel Urgent
05/12/24 16:07
Lactic Acid Urgent
Blood Culture Q30M
ALAYNA Source: Blood/Venous
Specimen Description:
Blood Culture Q30M
ALAYNA Source: Blood/Venous
Specimen Description:
05/12/24 16:47
0.9% Sodium Chloride 500 ml [Nss] 500 ml IV BOLUS
CR Chest - 2 Views Urgent
Comment:
Reason For Exam: cough, suspect PNA
05/12/24 16:53
0.9% Sodium Chloride 1000 ml [Nss] 1,000 ml IV BOLUS
05/12/24 17:31
Cefepime HCl [Maxipime] 2,000 mg IV NOW STA
05/12/24 18:11
Vancomycin [Vancocin] 1,500 mg 0.9% Sodium Chloride 500 ml [Nss] 500 ml IV NOW
05/12/24 18:22
Admit/Transfer Patient As Directed
Co-Sign Provider:
Level of Care: Inpatient admission
Assign to:: Telemetry
Physician / Group: hospitalist-Selin
Diagnosis: sepsis due to pna
Reason for Telemetry: Arrhythmia
Date to Stop Telemetry: 05/15/24
Time to Stop Telemetry: 11:00
Reason for Hospitalization: IV ABX, possible need for O2--failed outpt abx
Expected length of stay greater than two midnights?: Yes
ELOS- Estimated Length of Stay in days: 4
I certify the patient meets the requirements for IP care: Yes
PRN Pain Medication Management As Directed
May give lesser potent ordered pain med per pt: Yes
preference::
Protocol:: Medication orders for pain may be administered in a
manner that supports deferring to patient preference
when the pt is:
- Requesting an ordered lesser potent pain medication.
Least to most potent pain medications are defined
as: acetaminophen < NSAID < tramadol < opioids
(morphine, oxycodone, hydromorphone).
- Requesting a lesser dose of the same medication IF
ORDERED.
- Requesting a less intrusive route of administration
if both routes are prescribed by the provider (PO <
IV).
05/12/24 18:23
Code Status As Directed
Resuscitation Status: Full Code
05/12/24 18:28
COVID-19 Antigen Stat
Source: Nasal Swab
Influenza A+B Rapid Molecular Stat
ALAYNA Source: Nasal Swab
Specimen Description:
05/15/24 11:00
DC Protocol for Telemetry ONCE
Abnormal Lab Results
05/12/24
15:40
WBC 18.5 H 10^3/uL
(4.8-10.8)
RBC 3.80 L 10^6/uL
(4.20-5.40)
Hct 34.5 L %
(37.0-47.0)
MCH 32.1 H pg
(27.0-31.0)
Abs Immat Gran (auto) 0.2 H 10^3/uL
(0-0.05)
Absolute Neuts (auto) 15.1 H 10^3/uL
(1.4-6.5)
Absolute Monos (auto) 1.6 H 10^3/uL
(0.1-0.6)
Immature Gran % 1.1 H %
(0-0.5)
Neutrophils % 81.9 H %
(42.2-75.2)
Lymphocytes % 7.8 L %
(20.5-51.1)
Sodium 133 L mmol/L
(135-145)
Chloride 95 L mmol/L
(98-107)
BUN 28 H mg/dl
(7-17)
Glucose 115 H mg/dl
(70-99)
05/12/24 15:40
05/12/24 15:40
Vital Signs
Initial and Last Documented VS:
Initial Vital Signs
Temp Pulse Resp Pulse Ox
98.4 F 110 30 92
05/12/24 14:43 05/12/24 14:43 05/12/24 14:43 05/12/24 14:43
Last Documented Vital Signs
Temp Pulse Resp BP Pulse Ox
101.7 F H 85 22 102/60 94
05/12/24 15:32 05/12/24 18:45 05/12/24 18:45 05/12/24 18:01 05/12/24 18:45
<Mony Oshea PA-C - Last Filed: 05/12/24 19:17>
MDM/Problems Addressed
Differential Diagnosis Includes:
ddx include any acquired pneumonia failing outpatient therapy, COVID-19, influenza, CHF
MDM/Problems Addressed:
83-year-old female presents emergency department with concerns of progressive shortness of breath and cough following being treated with pneumonia last week. On physical exam she is tachypneic, febrile, and has some tachycardia. Chest x-ray
demonstrates mild pneumonia on the right side. Will start IV antibiotics and referred for admission.
<Mony Oshea PA-C - Last Filed: 05/12/24 19:17>
*Pulse Oximetry
Patient hypoxic: no
*Critical Care Note
Total Time (30-74mins, 75-104mins- exclusive of procedures): Not Applicable
Data Reviewed
Review of Other/Old Records Reveals: Records
<Mony Oshea PA-C - Last Filed: 05/12/24 19:17>
Patient Management
Escalation/DeEscalation of care consider admission/obs:
Patient referred for admission
ED Attending Note
<Mony Oshea PA-C - Last Filed: 05/12/24 19:17>
-
Portions of this chart may have been created with voice recognition software.� Occasional wrong word or��sound alike� substitutions may have occurred due to the inherent limitations of voice recognition software.
<Sammie Vasquez DO - Last Filed: 05/12/24 17:31>
ED Attending Note
ED Attending Note:
83-year-old female presenting to the emergency department for cough and shortness of breath. Patient reports symptoms for the past week. Notes she was seen in the hospital about a week ago, was having dizziness and was found to have pneumonia,
started on a Z-Fredo. She reports that she initially felt better, however 2 days ago started to feel worse. She also reports fevers at home. Denies chest pain. Reports decreased p.o. intake and generalized weakness. On arrival, noted to be
febrile and tachycardic.
On exam, no significant respiratory distress. Mild rhonchorous breath sounds on lung exam. Vital signs are meeting SIRS criteria with suspected source of infection being pulmonary. Suspect at this time failure of outpatient therapy. Plan for
laboratory analysis including blood cultures and lactic acid. Will also repeat chest x-ray to evaluate for any acute worsening of infiltrate. Tylenol administered for fever. Will start patient on IV fluids.
17:00 - Patient with leukocytosis. Lactic acid normal. No indication for severe sepsis or septic shock. Will continue fluids as clinically indicated. Pending chest x-ray imaging with ultimate plan for admission
17:30 - Chest x-ray consistent with pneumonia. Plan for admission for antibiotics, cultures pending
Discharge Plan
Departure
Patient Disposition: Admit
Date of Disposition: 05/12/24
Time of Disposition: 17:55
Admit to: Med/Surg
Presentation/result/management discussed w/ accepting MD/DO: Hospitalist
Condition: Fair
Discharge Problem:
Community acquired pneumonia
Interventions
Interventions:
*Risk Screen - Suicide Last Done: 05/12/24 14:43
*General Assessment Last Done: 05/12/24 14:43
*Neglect/Abuse Screening Last Done: 05/12/24 14:43
*ED- Fall Risk Assessment Last Done: 05/12/24 14:43
*ED COVID-19 Vaccine History Last Done: 05/12/24 14:43
ED- Cardiac Assessment Last Done: 05/12/24 15:45
ED- Pulmonary Assessment Last Done: 05/12/24 15:45
[2024-05-12] MEDS: TYLENOL 1000 MG PO (15:33)
[2024-05-12 15:49] LABS: % Basophils 0.5 % (0-2); % Immature Granulocytes 1.1 % (0-0.5); % Lymphocytes 7.8 % (20.5-51.1); % Monocytes 8.7 % (1.7-9.3); % Neutrophils 81.9 % (42.2-75.2); Absolute Basophils 0.1 10^3/uL (0-0.2); Absolute Immature Granulocytes 0.2 10^3/uL (0-0.05); Absolute Lymphocytes 1.4 10^3/uL (1.2-3.4); Absolute Monocytes 1.6 10^3/uL (0.1-0.6); Absolute Neutrophils 15.1 10^3/uL (1.4-6.5); Hematocrit 34.5 % (37.0-47.0); Hemoglobin 12.2 g/dL (12.0-16.0); Mean Corp Hgb Conc. 35.4 g/dL (33.0-37.0); Mean Corpuscular Hgb 32.1 pg (27.0-31.0); Mean Corpuscular Volume 90.8 fL (81.0-99.0); Mean Platelet Volume 9.4 fL (7.4-10.4); Nucleated Red Blood Cells % 0 %; Platelet Count 321 10^3/uL (130-400); Red Cell Dist. Width 12.2 % (11.5-14.5); White Blood Cell Count 18.5 10^3/uL (4.8-10.8)
[2024-05-12 16:18] LABS: ALT (SGPT) 14 U/L (0-35); AST (SGOT) 22 U/L (14-36); Alkaline Phosphatase 77 U/L (38-126); Blood Urea Nitrogen 28 mg/dl (7-17); Calcium 10.2 mg/dl (8.4-10.2); Carbon Dioxide 27 mmol/L (22-30); Chloride 95 mmol/L (98-107); Glucose 115 mg/dl (70-99); Potassium 3.9 mmol/L (3.5-5.1); Sodium 133 mmol/L (135-145); Total Bilirubin 1.2 mg/dl (0.2-1.3); Total Protein 6.9 g/dl (6.3-8.2); eGFR > 60.00
[2024-05-12 16:28] LABS: Lactic Acid 0.8 mmol/L (0.7-2.0)
[2024-05-12] MEDS: NSS 1000 IV ×2 (17:29→21:49)
[2024-05-12] MEDS: NSS 500 IV (17:29)
--- NOTE | 2024-05-12 18:31 | HPS.HSE ---
Family Physician
-
Family Physician: Kiersten Peterson
Chief Complaint
-
pna
History of Present Illness
Patient is an 83-year-old female with a past medical history of what sounds like hemochromatosis and essential hypertension who was in the hospital last Tuesday, May 07, 2024 for a reaction to one of her medications. At that time, she started
coming down with what she presumes is pneumonia. She was given a Z-Fredo and finished that course. On Tuesday/ of this week prior to admission she developed fevers upwards 201.5, cough productive of green phlegm, not feeling well and came
back for evaluation and treatment. She finished her full course of Zithromax. Workup here finds her to be septic due to pneumonia which failed outpatient antibiotic therapy. Patient is being admitted
Medical History
Past Medical History
Past Medical History: Reports Other
Additional Past Medical History:
Essential hypertension
Presumed hemochromatosis
Based on review of external medical summary, paroxysmal atrial fibrillation
Hyperlipidemia
Generalized anxiety disorder
Osteopenia
Past Surgical History: Reports Other
Additional Past Surgical History:
Unknown
Social History
Tobacco: Smoker (1 pack/day)
Alcohol: Daily (Has not had any within the last week usually has a cocktail with dinner)
Drug: None
Family History
Family History: Not pertinent
Allergies / Home Medications
Allergies reflects when Allergies were last updated in [facility].
Home Medications with original date entered in [facility]
Allergy/Medication List:
Not reconciled
Medication list is not available
Review of Systems
-
History Source: Patient and Family
Constitutional: Reports Fever and Sleep Disturbance
EENT: Reports No Symptoms
Respiratory: Reports Cough and Trouble Breathing
Cardiac: Denies Chest Pain or Palpitations
Abdomen/GI: Denies Abdominal Pain, Nausea, Vomiting, Diarrhea or Constipated
: Denies Dysuria
Musculoskeletal: Reports No Symptoms
Skin: Reports No Symptoms
Neurological: Reports Other (Had dizziness, weakness all improved after stopping Desferasirox? Desferoxamine?)
Endocrine: Reports No Symptoms
Hematologic/Lymphatic: Reports No Symptoms
Psych: Reports No Symptoms
Physical Exam
Vital Signs
Vital Signs
Temp Pulse Resp BP Pulse Ox
101.7 F H 94 24 107/58 90
05/12/24 15:32 05/12/24 17:30 05/12/24 17:30 05/12/24 17:00 05/12/24 17:30
Physical Exam
General: Well Developed, Well Nourished and Other (appears ill)
HEENT: NormoCephalic and Anicteric; No Oxygen
Respiratory: Rhonchi (with loose productive sounding cough)
Cardiac: S1/S2 and Regular Rhythm
GI: Soft, Non Tender, Non Distended and Normal Bowel Sounds
Musculoskeletal: No Clubbing, No Cyanosis and No Edema
Skin: Warm
Neuro: Awake and Alert
Psych: Calm
Laboratory Results
-
05/12/24 15:40
05/12/24 15:40
Laboratory Results
Lactic Acid 0.8 mmol/L (0.7-2.0) 05/12/24 16:07
Total Bilirubin 1.2 mg/dl (0.2-1.3) 05/12/24 15:40
AST 22 U/L (14-36) 05/12/24 15:40
ALT 14 U/L (0-35) 05/12/24 15:40
Alkaline Phosphatase 77 U/L (38-126) 05/12/24 15:40
Impression/Plan
-
pt is an 83 year old female
Sepsis--present on admission by criteria (fever, increased respiratory rate, leukocytosis, pneumonia)--due to presumed community-acquired pneumonia--failed outpatient Zithromax treatment--ADMIT to tele--received vancomycin/cefepime in ED--there is
nothing to suspect that she has multidrug-resistant organisms or MRSA--will change to ceftriaxone/doxycycline--continue nebs--check sputum culture, blood cultures--currently 96% on room air--O2 therapy as needed
Paroxysmal atrial fibrillation--patient denies ever hearing these words--states she takes a blood thinner because her equipment engineer told her to--she does admit to Eliquis--as soon as medication list is obtained we will order
Presumed hemochromatosis--had been having serial blood draws, the patient developed anemia--started on what appears to be deferoxamine, but had reaction to it and so stopped on May 07, 2024
Essential hypertension--patient admits to taking lisinopril--dose unclear--again once meds are available will order
Hyperlipidemia--await medication list
Chronic tobacco use--patient smokes 1 pack/day--will need to quit
Alcohol use--patient admits to 1 cocktail with dinner per day--none over the last week--no signs of withdrawal symptoms
Generalized anxiety disorder--await medication list
DVT prophylaxis--sequential teds until Eliquis dosing obtained
CODE STATUS--full code
[2024-05-12] MEDS: MAXIPIME 2000 MG IV (18:41)
[2024-05-12 19:10] LABS: COVID-19 Antigen Negative (Negative)
[2024-05-12] MEDS: VANCOCIN 530 MG IV (19:17)
[2024-05-12] MEDS: STERILE WATER FOR INJECTION 10 ML IV (21:49)
[2024-05-12] MEDS: ROCEPHIN 1000 MG IV (21:49)
[2024-05-12] MEDS: VIBRAMYCIN 100 MG PO (21:50)
--- NOTE | 2024-05-13 03:33 | PTCARENOTE ---
Pt transported from ED to 3W via stretcher. Pt standby from stretcher to bed, AAOx3, vitals obtained and stable. Pt oriented to room, call chang within reach.
[2024-05-13 03:35] VITALS: BP 146/64
[2024-05-13 06:00] VITALS: BMI 19.9
[2024-05-13 06:06] LABS: ALT (SGPT) 12 U/L (0-35); AST (SGOT) 18 U/L (14-36); Albumin 3.1 g/dl (3.5-5.0); Alkaline Phosphatase 72 U/L (38-126); Blood Urea Nitrogen 25 mg/dl (7-17); Calcium 9.1 mg/dl (8.4-10.2); Carbon Dioxide 22 mmol/L (22-30); Chloride 105 mmol/L (98-107); Estimated Creatinine Clearance 50 ml/min; Glucose 80 mg/dl (70-99); Potassium 3.4 mmol/L (3.5-5.1); Sodium 136 mmol/L (135-145); Total Bilirubin 0.6 mg/dl (0.2-1.3); Total Protein 5.7 g/dl (6.3-8.2); eGFR > 60.00
[2024-05-13 06:29] LABS: Hematocrit 28.3 % (37.0-47.0); Mean Corp Hgb Conc. 35.3 g/dL (33.0-37.0); Mean Corpuscular Hgb 32.6 pg (27.0-31.0); Mean Corpuscular Volume 92.2 fL (81.0-99.0); Mean Platelet Volume 10.4 fL (7.4-10.4); Platelet Count 302 10^3/uL (130-400); Red Blood Cell Count 3.07 10^6/uL (4.20-5.40); Red Cell Dist. Width 12.4 % (11.5-14.5); White Blood Cell Count 14.8 10^3/uL (4.8-10.8)
[2024-05-13 07:00] VITALS: BP 154/73
[2024-05-13] MEDS: ZESTRIL 40 MG PO (08:49)
[2024-05-13] MEDS: KCL 40 MEQ PO (08:49)
[2024-05-13] MEDS: ELIQUIS 2.5 MG PO ×2 (08:50→19:43)
[2024-05-13] MEDS: VITAMIN B-12 1000 MCG PO (08:51)
[2024-05-13] MEDS: VIBRAMYCIN 100 MG PO ×2 (08:51→19:43)
--- NOTE | 2024-05-13 10:42 | W.PN.HOSP.TC ---
Today's Communication/Plan
-
cont IV ABX today
add IS/acapella
d/c IVF
anticipate d/c home tomorrow
Assessment / Plan
Assessment / Plan
pt is an 83 year old female
Sepsis--present on admission by criteria (fever, increased respiratory rate, leukocytosis, pneumonia)--due to presumed community-acquired pneumonia--failed outpatient Zithromax treatment--received vancomycin/cefepime in ED--there is nothing to
suspect that she has multidrug-resistant organisms or MRSA--will change to ceftriaxone/doxycycline--continue nebs--check sputum culture, blood culture neg/COVID/FLU neg--currently 96% on room air--O2 therapy as needed--WBC improving--add
IS/acapella--transfer to med/surg
diarrhea--likely due to ABX--C. diff neg--can STOP enteric precautions
Paroxysmal atrial fibrillation--patient denies ever hearing these words--states she takes a blood thinner because her tax economist told her to--she does admit to Eliquis, pharmacy adjusted dose--continue
Presumed hemochromatosis--had been having serial blood draws, the patient developed anemia--started on what appears to be deferoxamine, but had reaction to it and so stopped on May 07, 2024
Essential hypertension--cont HCTZ and lisinopril--stop IVF
Hyperlipidemia--no meds
Chronic tobacco use--patient smokes 1 pack/day--will need to quit
Alcohol use--patient admits to 1 cocktail with dinner per day--none over the last week--no signs of withdrawal symptoms
Generalized anxiety disorder--no meds
DVT prophylaxis-- Eliquis dosing obtained
CODE STATUS--full code
Anticipated Discharge: Within 24 hours
Subjective/Interval History
-
Date of Service: May 13, 2024
pt feeling much better--wants to go home
Objective Data
-
Labs:
Laboratory Results
05/13/24
05:17
WBC 14.8 H
Hgb 10.0 L
Hct 28.3 L
Plt Count 302
Sodium 136
Potassium 3.4 L
Chloride 105
Carbon Dioxide 22
BUN 25 H
Creatinine 0.7
Glucose 80
Calcium 9.1
Total Bilirubin 0.6
AST 18
ALT 12
Alkaline Phosphatase 72
Vital Signs:
max temp for 24 hours
05/12/24
15:32
Temp 101.7 F H
Vital Signs
Temp Pulse Resp BP Pulse Ox
98.6 F 90 17 154/73 94
05/13/24 07:00 05/13/24 07:00 05/13/24 07:00 05/13/24 07:00 05/13/24 07:00
Review of Systems
-
History Source: Patient
All other systems: Reviewed and negative
Abdomen/GI: Denies Diarrhea
Physical Exam
-
General: Well Developed, Well Nourished and No Apparent Distress
HEENT: Normocephalic and Atraumatic; Negative Oxygen
Respiratory: Rhonchi (loose sounding cough)
Cardiac: Regular Rhythm and S1/S2; Negative Murmur
GI: Soft, Nontender, Nondistended and Normal Bowel Sounds
Musculoskeletal: No Clubbing, No Cyanosis and No Edema
Neuro: Awake and Alert
Psych: Calm
[2024-05-13 11:00] VITALS: BP 135/75
--- NOTE | 2024-05-13 12:15 | CM ---
CM following re: d/c planning.
CM met with pt at bedside to complete IA.
Pt reports she resides with her friend [place].
She is independent with mobility and ADLs at baseline.
She denies DME or VN in the home.
She drives.
PCP is Kiersten Peterson, GR[employer] [employer]PERATOR and [facility] is [facility].
Pt does not anticipate any d/c needs.
She will have transport home via friend.
[2024-05-13 15:00] VITALS: BP 135/76
[2024-05-13] MEDS: ROCEPHIN 1000 MG IV (21:18)
[2024-05-13] MEDS: STERILE WATER FOR INJECTION 10 ML IV (21:18)
[2024-05-13 23:39] VITALS: BP 138/69
[2024-05-14 06:29] LABS: Hemoglobin 10.1 g/dL (12.0-16.0); Mean Corp Hgb Conc. 36.1 g/dL (33.0-37.0); Mean Corpuscular Hgb 33.3 pg (27.0-31.0); Mean Corpuscular Volume 92.4 fL (81.0-99.0); Mean Platelet Volume 9.9 fL (7.4-10.4); Platelet Count 313 10^3/uL (130-400); Red Blood Cell Count 3.03 10^6/uL (4.20-5.40); Red Cell Dist. Width 12.3 % (11.5-14.5); White Blood Cell Count 10.6 10^3/uL (4.8-10.8)
[2024-05-14 07:06] LABS: Blood Urea Nitrogen 19 mg/dl (7-17); Calcium 9.7 mg/dl (8.4-10.2); Carbon Dioxide 25 mmol/L (22-30); Chloride 107 mmol/L (98-107); Estimated Creatinine Clearance 50 ml/min; Glucose 88 mg/dl (70-99); Magnesium 1.4 mg/dl (1.6-2.3); Potassium 3.9 mmol/L (3.5-5.1); Sodium 137 mmol/L (135-145); eGFR > 60.00
[2024-05-14 07:22] VITALS: BP 136/70
[2024-05-14] MEDS: VIBRAMYCIN 100 MG PO (07:51)
[2024-05-14] MEDS: VITAMIN B-12 1000 MCG PO (07:51)
[2024-05-14] MEDS: ELIQUIS 2.5 MG PO (07:51)
[2024-05-14] MEDS: ZESTRIL 40 MG PO (07:51)
[2024-05-14] MEDS: NICODERM TRANSDERMAL 14 MG TRANSDERM (07:52)
--- NOTE | 2024-05-14 09:21 | W.PN.HOSP.TC ---
Addendum entered and electronically signed by Jaqueline Smallwood MD 05/14/24 18:48:
I saw and evaluated the patient independently. I reviewed the resident�s note and agree with findings and plan as documented by Dr. Duarte.
GENERAL: well developed, well nourished, female in no apparent distress
HEENT: NC/AT--no O2
HEART: regular rate and rhythm, +S1, +S2
LUNGS : clear to auscultation bilaterally
ABDOM: soft, nontender, nondistended, + bowel sounds
EXT: no cyanosis, clubbing, or edema
NEUROLOGIC: grossly intact
Sepsis--present on admission by criteria (fever, increased respiratory rate, leukocytosis, pneumonia)--due to presumed community-acquired pneumonia--failed outpatient Zithromax treatment--received vancomycin/cefepime in ED--there is nothing to
suspect that she has multidrug-resistant organisms or MRSA--will change to ceftriaxone/doxycycline--continue nebs--check sputum culture, blood culture neg/COVID/FLU neg--currently 96% on room air--O2 therapy as needed--WBC improving--add
IS/acapella--OK for d/c--change to oral keflex/doxy x 7 days
diarrhea--likely due to ABX--C. diff neg--can STOP enteric precautions--rersolved
hypokalemia/hypomagnesemia--replete as needed
Paroxysmal atrial fibrillation--patient denies ever hearing these words--states she takes a blood thinner because her nuclear radiologist told her to--she does admit to Eliquis, pharmacy adjusted dose--continue
Presumed hemochromatosis--had been having serial blood draws, the patient developed anemia--started on what appears to be deferoxamine, but had reaction to it and so stopped on May 07, 2024
Essential hypertension--cont HCTZ and lisinopril--stop IVF
Hyperlipidemia--no meds
Chronic tobacco use--patient smokes 1 pack/day--will need to quit
Alcohol use--patient admits to 1 cocktail with dinner per day--none over the last week--no signs of withdrawal symptoms
Generalized anxiety disorder--no meds
DVT prophylaxis-- Eliquis dosing obtained
CODE STATUS--full code
Original Note:
Today's Communication/Plan
-
Discharge home today
Assessment / Plan
Assessment / Plan
pt is an 83 year old female
Sepsis present on admission (fever, increased respiratory rate, leukocytosis, pneumonia) secondary to community-acquired pneumonia
CAP -- Failed outpatient Zithromax treatment
- S/p received vancomycin/cefepime in ED; nothing to suspect that she has multidrug-resistant organisms or MRSA--> antibiotics changed to ceftriaxone/doxycycline (started 05/12 PM)
- Flu/covid negative. Blood cultures pending, no growth at 24 hours. Sputum culture not obtained.
- Maintaining appropriate oxygenation on room air
- WBC downtrending, now wnl.
- Stable for discharge home. Will provide additional 7 days of doxycycline and cephalexin.
diarrhea--likely due to ABX--C. diff neg--can STOP enteric precautions
Paroxysmal atrial fibrillation--patient unaware of previous diagnosis; continue home eliquis (dose reduced this admission)
Presumed hemochromatosis--had been having serial blood draws, the patient developed anemia--started on what appears to be deferoxamine, but had reaction to it and so stopped on May 07, 2024
Essential hypertension--cont HCTZ and lisinopril
Hyperlipidemia--no meds
Chronic tobacco use--patient smokes 1 pack/day--smoking cessation, nicotine replacement prn.
Alcohol use--patient admits to 1 cocktail with dinner per day--none over the last week--no signs of withdrawal symptoms
Generalized anxiety disorder--no meds
Electrolyte abnormalities (hypokalemia, hypomagnesemia)- supplement prn.
Code status: Full
VTE ppx: eliquis
Dispo planning: home today
Anticipated Discharge: Today
Subjective/Interval History
-
Date of Service: May 14, 2024
No acute events overnight. Reports mild neck and back pain which is new, but feels better after sitting in the chair. Reports feeling low energy, otherwise no complaints. ROS negative. Diarrhea resolved, she had a solid BM yesterday. Tolerating
oral diet. Out of bed to bathroom.
Objective Data
-
Labs:
Laboratory Results
05/14/24
05:52
WBC 10.6
Hgb 10.1 L
Hct 28.0 L
Plt Count 313
Sodium 137
Potassium 3.9
Chloride 107
Carbon Dioxide 25
BUN 19 H
Creatinine 0.7
Glucose 88
Calcium 9.7
05/13/24 05:17 Blood/Venous Blood Culture - Preliminary
No Growth in 24 hours- Final report to follow
05/12/24 21:27 Blood/Venous Blood Culture - Preliminary
No Growth in 24 hours- Final report to follow
05/12/24 16:07 Blood/Venous Blood Culture - Preliminary
No Growth in 24 hours- Final report to follow
05/12/24 16:07 Blood/Venous Blood Culture - Preliminary
No Growth in 24 hours- Final report to follow
05/13/24 00:01 Feces/Stool C. difficile GDH Antigen & Toxins - Final
Negative for toxigenic C.difficile
05/12/24 18:28 Nasal Swab Influenza Types A & B ([facility]ITO) - Final
Negative for Influenza A & B, NAAT
Negative results must be combined with clinical observations
and patient history.
Nucleic Acid Amplification test (NAAT)performed on the
[employer] platform.
Vital Signs:
Vital Signs
Temp Pulse Resp BP Pulse Ox
98.2 F 93 26 136/70 97
05/14/24 07:22 05/14/24 07:22 05/14/24 07:22 05/14/24 07:22 05/14/24 07:22
I&O
05/13/24 05/14/24 05/15/24
06:59 06:59 06:59
Intake Total 1140 / 1140
Balance 1140 / 1140
Review of Systems
-
History Source: Patient
All other systems: Reviewed and negative
Abdomen/GI: Denies Diarrhea
Physical Exam
-
General: Well Developed, Well Nourished, No Apparent Distress and Comfortable
HEENT: Normocephalic and Atraumatic; Negative Oxygen
Respiratory: Rhonchi (loose sounding cough)
Cardiac: Regular Rhythm and S1/S2; Negative Murmur
GI: Soft, Nontender, Nondistended and Normal Bowel Sounds
Musculoskeletal: No Clubbing, No Cyanosis and No Edema
Neuro: Awake and Alert
Psych: Calm
--- NOTE | 2024-05-14 11:13 | PN.CDI ---
CDI
- -
CDI:
Physician Documentation Request
Admit Date: 05/12/24 19:09
Dear Doctor Selin,
Patient admitted for sepsis.
05/13 Potassium level: 3.4
05/13 Potassium chloride 40 meq PO administered
Based on the above, could you clarify in the progress notes, the appropriate diagnosis, if significant, that supports the above abnormalities and additional evaluation, monitoring and/or treatment rendered:
Hypokalemia
Abnormal lab value insignificant
Other
Use of terms such as suspected, likely, concern for, or probable (associated with a specific diagnosis that is being evaluated, monitored, or treated as if it exists) are acceptable and can be coded in the inpatient setting, when documented at the
time of discharge.
Thank you,
Margot Hunt RN, BSN
CDI Specialist
Available via [place] text
Please use your independent medical judgment in providing your response.
[2024-05-14] MEDS: MAGNESIUM SULFATE 50 IV (12:14)
[2024-05-14 15:05] VITALS: BP 141/75
--- NOTE | 2024-05-14 18:34 | W.DCSUMMARY ---
Addendum entered and electronically signed by Jaqueline Smallwood MD 05/14/24 19:03:
Read, reviewed, and agree. See same day progress note for additional details. Time spent coordinating care, DC planning, review of DC plan of care with resident, transition of care, review of records in EMR, med rec, consults, notes, d/w
consultants, nursing, family, and CM = 25 minutes
Original Note:
Discharge Summary
Discharge Data
Date of Admission: 05/12/24
Date of Discharge: 05/14/24
-
Pending Results: Yes
Additional Pending Results:
05/12/24 16:07 Blood/Venous Blood Culture - Preliminary
No Growth in 48 hours- Final report to follow
05/12/24 16:07 Blood/Venous Blood Culture - Preliminary
No Growth in 48 hours- Final report to follow
05/13/24 05:17 Blood/Venous Blood Culture - Preliminary
No Growth in 24 hours- Final report to follow
05/12/24 21:27 Blood/Venous Blood Culture - Preliminary
No Growth in 24 hours- Final report to follow
Hospital Course
Discharging Physician : Dr. Duarte/Dr. Smallwood
Disposition : Home
Primary care physician : Kiersten Peterson
Principal Discharge diagnosis : Sepsis present on admission secondary to community acquired pneumonia (failed outpatient zithromax treatment)
Chronic Discharge diagnosis : Paroxysmal atrial fibrillation, presumed hemochromatosis, essential hypertension, hyperlipidemia, chronic tobacco use, daily alcohol use, generalized anxiety disorder
Hospital Course : Presented to ED for fever, productive cough, malaise and found to have sepsis secondary to community-acquired pneumonia after failing outpatient treatment with Zithromax. Her pneumonia was managed with antibiotics, nebulizers,
incentive spirometry, Acapella and she felt significant improvement. Her other chronic conditions remained stable. Her blood culture showed no growth to date; final results pending. On day of discharge, she was stable. She was discharged home to
complete an additional 7 days of doxycycline and cephalexin.
Important imaging findings :
chest xray 05/12/24
FINDINGS/IMPRESSION:
Mild posterior basilar opacity on the lateral projection, not well seen on the AP projection, could represent atelectasis or mild pneumonia in the appropriate clinical setting.
The lungs are symmetrically hyperinflated. No pleural effusion or pneumothorax. Stable mild enlargement of the cardiac silhouette. Small hiatal hernia. Chronic mild compression fracture at the thoracolumbar junction.
Procedure findings : N/A
Discharge Plan
-
Patient Disposition: Home (Routine Discharge)
Discharge Diagnosis/Procedures: Sepsis present on admission secondary to community-acquired pneumonia
Paroxysmal atrial fibrillation
Presumed hemochromatosis
Essential hypertension
Hyperlipidemia
Chronic tobacco use
Generalized anxiety disorder
Condition: Good
Diet: Low Cholesterol
Activity: No restrictions
Driving Restrictions: As prior to admission
Bathing Restrictions: OK to Shower
Instructions: Quitting smoking for adults, Pneumonia in adults - ED discharge instructions, BLOOD PRESSURE
Referrals:
Kiersten Peterson CRNP [Family Provider] - in less than 1 week (Call your Primary Care Provider to schedule follow up appointment within 1 week of hospitalization.)
Additional Discharge Medication Instructions: Continue these antibiotics for 1 week:
Cephalexin- Take 1 capsule two times per day.
Doxycycline- Take 1 capsule two times per day.
Your dose of eliquis was decreased (from 5 mg to 2.5 mg). Please take 1 tablet (2.5 mg) two times per day.
Continue nicotine replacement to help you stop smoking.
For medication questions or refills, please call your Primary Care Provider.
Prescriptions:
New
Eliquis 2.5 mg Tablet
2.5 mg PO BID Qty: 60 0RF
nicotine 14 mg/24 hr Patch 24 Hour
14 mg transdermal DAILY Qty: 0 0RF
doxycycline hyclate 100 mg Capsule
100 mg PO BID 7 Days Qty: 14 0RF
cephalexin 500 mg capsule
500 mg PO BID 7 Days Qty: 14 0RF
Continued
lisinopril 40 mg Tablet
40 mg PO DAILY
hydrochlorothiazide 50 mg Tablet
50 mg PO DAILY
cyanocobalamin (vitamin B-12) 1,000 mcg Tablet
1,000 mcg PO DAILY
Discontinued
Eliquis 5 mg Tablet
5 mg PO BID
Discharge Orders:
Discharge Patient (As Directed); Ordered 05/14/24
Ordered By: Shirley Duarte
Discharge Date and Time
Discharge Date/Time: 05/14/24 15:59
Print Language: SLOVENIAN
== END 2024-05-14 15:59 | disposition home or self-care (01) | DRG 871 ==
LOC: 3 WEST ACU 19:09
PROVIDERS: Physician Assistant; Student in an Organized Health Care Education/Training Program; ADMITTING PHYSICIAN Internal Medicine; EMERGENCY PHYSICIAN Student in an Organized Health Care Education/Training Program; FAMILY PHYSICIAN Nurse Practitioner Adult Health
DX: A41.9 Sepsis, unspecified organism (principal); J18.9 Pneumonia, unspecified organism; I48.0 Paroxysmal atrial fibrillation; I10 Essential (primary) hypertension; E78.5 Hyperlipidemia, unspecified; F17.210 Nicotine dependence, cigarettes, uncomplicated; F41.1 Generalized anxiety disorder; K44.9 Diaphragmatic hernia without obstruction or gangrene; E83.42 Hypomagnesemia; E87.6 Hypokalemia; E83.119 Hemochromatosis, unspecified; D64.9 Anemia, unspecified; M85.80 Other specified disorders of bone density and structure, unspecified site; Z79.01 Long term (current) use of anticoagulants; Z11.52 Encounter for screening for COVID-19; F10.90 Alcohol use, unspecified, uncomplicated
CPT/HCPCS: 71046; 80048; 80053; 83605; 83735; 85025; 85027; 87040; 87324; 87449; 87502; 87811; 96360; 99285

== ENCOUNTER → 2024-06-29 10:10 | Outpatient (REF) | payer OTHER, SELFPAY ==
[2024-06-29 10:59] LABS: Urine Albumin Negative (Neg - Trace); Urine Bilirubin Negative (Negative); Urine Character Clear (Clear); Urine Color Yellow; Urine Glucose 1+ (Negative); Urine Ketone Negative (Negative); Urine Leukocyte 1+ (Negative); Urine Nitrite Negative (Negative); Urine Occult Blood 2+ (Negative); Urine Specific Gravity 1.025 (<1.030); Urine Urobilinogen Negative (Neg - 1+)
[2024-06-29 11:23] LABS: ALT (SGPT) 21 U/L (0-35); AST (SGOT) 31 U/L (14-36); Albumin 4.1 g/dl (3.5-5.0); Alkaline Phosphatase 80 U/L (38-126); Blood Urea Nitrogen 28 mg/dl (7-17); Calcium 10.6 mg/dl (8.4-10.2); Carbon Dioxide 30 mmol/L (22-30); Chloride 103 mmol/L (98-107); Glucose 168 mg/dl (70-99); HDL Cholesterol 94 mg/dl; Iron 232 ug/dl (37-170); LDL Cholesterol, Calculated 89 mg/dl; Magnesium 1.6 mg/dl (1.6-2.3); Sodium 142 mmol/L (135-145); Total Bilirubin 0.9 mg/dl (0.2-1.3); Total Cholesterol 194 mg/dl (50-199); Total Protein 6.8 g/dl (6.3-8.2); Triglyceride 55 mg/dl (10-149); Very Low Density Lipoprotein 11 mg/dl (0-30); eGFR > 60.00
[2024-06-29 11:33] LABS: Percent Saturation 93 % (20-50); Total Iron Binding Capacity 248 ug/dl (265-497)
[2024-06-29 11:35] LABS: Vitamin D, 25-OH*** 46.5 ng/mL (30-80)
[2024-06-29 11:48] LABS: TSH Reflex To Free T4 1.39 uIU/ml (0.47-4.68)
[2024-06-29 11:49] LABS: % Basophils 0.9 % (0-2); % Eosinophils 0.3 % (0-6); % Immature Granulocytes 0.4 % (0-0.5); % Lymphocytes 25.5 % (20.5-51.1); % Monocytes 5.2 % (1.7-9.3); % Neutrophils 67.7 % (42.2-75.2); Absolute Basophils 0.1 10^3/uL (0-0.2); Absolute Lymphocytes 2.4 10^3/uL (1.2-3.4); Absolute Monocytes 0.5 10^3/uL (0.1-0.6); Absolute Neutrophils 6.3 10^3/uL (1.4-6.5); Hematocrit 36.2 % (37.0-47.0); Hemoglobin 12.2 g/dL (12.0-16.0); Mean Corp Hgb Conc. 33.7 g/dL (33.0-37.0); Mean Corpuscular Hgb 32.1 pg (27.0-31.0); Mean Corpuscular Volume 95.3 fL (81.0-99.0); Mean Platelet Volume 10.9 fL (7.4-10.4); Nucleated Red Blood Cells % 0 %; Platelet Count 239 10^3/uL (130-400); Red Cell Dist. Width 13.5 % (11.5-14.5); White Blood Cell Count 9.4 10^3/uL (4.8-10.8)
[2024-06-29 11:59] LABS: Urine Hyaline Cast 0-2 /LPF (0-2); Urine Mucus Few; Urine Squamous Cell >30 /LPF (Few)
[2024-06-29 12:00] LABS: Urine Red Blood Cell 0-2 /HPF (0-2)
[2024-07-01 05:16] LABS: Transferrin 223 mg/dL (200-360)
== END ==
LOC: REG 10:10
PROVIDERS: ATTENDING PHYSICIAN Internal Medicine Hematology & Oncology; FAMILY PHYSICIAN Nurse Practitioner Adult Health
DX: E83.110 Hereditary hemochromatosis (principal); E83.42 Hypomagnesemia; I10 Essential (primary) hypertension
CPT/HCPCS: 36415; 80053; 80061; 81003; 81015; 82306; 82728; 83540; 83550; 83735; 84443; 84466; 85025

== ENCOUNTER → 2024-09-10 09:12 | Outpatient (REF) | payer OTHER, SELFPAY ==
[2024-09-10 10:37] LABS: Iron 221 ug/dl (37-170)
[2024-09-10 10:47] LABS: Total Iron Binding Capacity 253 ug/dl (265-497)
[2024-09-10 10:58] LABS: Hematocrit 37.3 % (37.0-47.0); Hemoglobin 12.7 g/dL (12.0-16.0); Mean Corp Hgb Conc. 34.0 g/dL (33.0-37.0); Mean Corpuscular Volume 93.7 fL (81.0-99.0); Nucleated Red Blood Cells % 0 %; Platelet Count 201 10^3/uL (130-400); Red Cell Dist. Width 13.0 % (11.5-14.5)
[2024-09-10 11:14] LABS: Ferritin 355.0 ng/ml (11.1-264.0)
== END ==
LOC: REG 09:12
PROVIDERS: ATTENDING PHYSICIAN Internal Medicine Hematology & Oncology; FAMILY PHYSICIAN Nurse Practitioner Adult Health
DX: E83.110 Hereditary hemochromatosis (principal); R71.8 Other abnormality of red blood cells; D53.9 Nutritional anemia, unspecified; D51.8 Other vitamin B12 deficiency anemias
CPT/HCPCS: 36415; 82728; 83540; 83550; 85025